=== PATIENT | male | born 1985 | race Caucasian/White ===

== ENCOUNTER 2019-03-23 14:57 | Emergency (ER) | payer MEDICAID ==
[~2019-03-23] VITALS: Ht 167.6 cm; Wt 117.9 kg
[~2019-03-23 14:57] MED LIST: IBU600T
[2019-03-23 16:47] VITALS: BP 135/89
== END 2019-03-23 17:46 | disposition home or self-care (01) ==
LOC: ER 14:57
DX: K02.9 Dental caries, unspecified (principal); K08.89 Other specified disorders of teeth and supporting structures; M54.9 Dorsalgia, unspecified; Z90.89 Acquired absence of other organs; Z79.1 Long term (current) use of non-steroidal anti-inflammatories (NSAID)

== ENCOUNTER 2023-04-24 08:23 | Emergency (ER) | payer MEDICAID ==
[~2023-04-24] VITALS: Ht 167.6 cm; Wt 133.9 kg
[2023-04-24 08:37] VITALS: BP 137/82; PULSE 18; RESP 18; TEMP 98.6; O2SAT 95
[2023-04-24] MEDS ORDERED: cefTRIAXone SOD 1,000 MG VL IM ONE (09:15)
[2023-04-24] MEDS ORDERED: CLIN-203 PO (09:16)
[2023-04-24] MEDS ORDERED: TRIA0.02 TOP (09:16)
[2023-04-24] MEDS ORDERED: LIDOCAINE 1% HCL (LOCAL ANESTH.) INJ 20ML MDV ONE (09:19)
[2023-04-24] MEDS ORDERED: LIDOCAINE 1% HCL (LOCAL ANESTH.) INJ 20ML MDV IJ ONE (09:30)
== END 2023-04-24 09:47 | disposition home or self-care (01) ==
LOC: ER 08:23
DX: T63.481A Toxic effect of venom of other arthropod, accidental (unintentional), initial encounter (principal); Z88.0 Allergy status to penicillin; Z88.2 Allergy status to sulfonamides; Z90.89 Acquired absence of other organs; Z79.899 Other long term (current) drug therapy; Y92.89 Other specified places as the place of occurrence of the external cause
CPT/HCPCS: 93971; 96372; 99285; J0696; J2001